=== PATIENT | male | born 1975 | race Hispanic/Latino ===

== ENCOUNTER 2021-01-10 11:25 | Emergency (ER) | payer BC ==
[2021-01-10 11:31] VITALS: BP 163/107
--- NOTE | 2021-01-10 11:43 | Emergency Department Report ---
ED General Adult HPI - General Chief complaint: High BP Stated complaint: B/P MED REFILL Time Seen by Provider: 01/10/21 11:38 Source: patient Mode of arrival: Ambulatory Limitations: No Limitations - History of Present Illness Initial comments: Patient is a 45-year-old male presents emergency room with complaints of needing a medication refill. he states that he is traveling from [place] and forgot to bring his high blood pressure medication. He states he takes lisinopril 10 mg daily. He states that he did not take it yesterday or today. He denies any symptoms at all currently. He denies any headache, vision changes, numbness, weakness, speech disturbance, gait disturbance, chest pain, shortness of breath, urinary retention. He denies any other past medical history. No allergies to medications. - Related Data Previous Rx's Medication Instructions Recorded Last Taken Type lisinopriL [Lisinopril] 10 mg PO DAILY #30 tablet 01/10/21 Unknown Rx Allergies Allergy/AdvReac Type Severity Reaction Status Date / Time No Known Allergies Allergy Unverified 01/10/21 11:30 ED Review of Systems ROS: Stated complaint: B/P MED REFILL Other details as noted in HPI Comment: All other systems reviewed and negative ED Past Medical Hx - Medications Home Medications: Home Medications Medication Instructions Recorded Confirmed Last Taken Type lisinopriL [Lisinopril] 10 mg PO DAILY #30 tablet 01/10/21 Unknown Rx ED Physical Exam - General Limitations: No Limitations General appearance: alert, in no apparent distress - Head Head exam: Present: atraumatic, normocephalic - Eye Eye exam: Present: normal appearance - ENT ENT exam: Present: mucous membranes moist - Respiratory Respiratory exam: Present: normal lung sounds bilaterally. Absent: respiratory distress, wheezes, rales, rhonchi, stridor, chest wall tenderness, accessory muscle use, decreased breath sounds, prolonged expiratory - Cardiovascular Cardiovascular Exam: Present: regular rate, normal rhythm, normal heart sounds. Absent: systolic murmur, diastolic murmur, rubs, gallop - Neurological Exam Neurological exam: Present: alert, oriented X3 - Psychiatric Psychiatric exam: Present: normal affect, normal mood - Skin Skin exam: Present: warm, dry, intact ED Course Vital Signs 01/10/21 11:27 Temperature 98.0 F Pulse Rate 58 L Respiratory 18 Rate Blood Pressure 163/107 O2 Sat by Pulse 98 Oximetry ED Medical Decision Making - Medical Decision Making Patient is a 45-year-old male presents emergency room with complaints of needing a medication refill. he states that he is traveling from [place] and forgot to bring his high blood pressure medication. He states he takes lisinopril 10 mg daily. He states that he did not take it yesterday or today. He denies any symptoms at all currently. He denies any headache, vision changes, numbness, weakness, speech disturbance, gait disturbance, chest pain, shortness of breath, urinary retention. He denies any other past medical history. No allergies to medications. Vitals with elevated blood pressure, otherwise stable. The up-to-date medical literature does not commend emergently lowering asymptomatic elevated blood pressure. Patient is out of his medication and is requesting a refill. Patient given a 30-day supply of his medication and discussed the importance of lifestyle modifications and primary care to follow-up. Advised patient Please take medication as prescribed. Increase your water intake. Follow-up with your primary care doctor. Eat a low-sodium diet. Incorporate 30 to 60 minutes of daily exercise. Keep a blood pressure log and take this to your primary care doctor. Return to emergency room for any new or worsening symptoms. Critical care attestation.: If time is entered above; I have spent that time in minutes in the direct care of this critically ill patient, excluding procedure time. ED Disposition Clinical Impression: Medication refill HTN (hypertension) Qualifiers: Hypertension type: unspecified Qualified Code(s): I10 - Essential (primary) hypertension Disposition: 01 HOME / SELF CARE / HOMELESS Is pt being admited?: No Does the pt Need Aspirin: No Condition: Stable Instructions: Preventing Hypertension, Low-Sodium Eating Plan, Hypertension (ED) Additional Instructions: Please take medication as prescribed. Increase your water intake. Follow-up with your primary care doctor. Eat a low-sodium diet. Incorporate 30 to 60 minutes of daily exercise. Keep a blood pressure log and take this to your primary care doctor. Return to emergency room for any new or worsening symptoms. Prescriptions: lisinopriL [Lisinopril] 10 mg PO DAILY #30 tablet Referrals: your, primary care doctor [Other] - 2-3 Days Time of Disposition: 11:42 Print Language: BENGALI
== END 2021-01-10 12:11 | disposition home or self-care (01) ==
LOC: ED 11:25
DX: I10 Essential (primary) hypertension (principal); Z76.0 Encounter for issue of repeat prescription
CPT/HCPCS: 99282